=== PATIENT | male | born 1965 | race Caucasian/White ===

== ENCOUNTER 2019-08-07 08:04 | Emergency (ER) | payer OTHER, SELFPAY ==
--- NOTE | ~2019-08-07 | XR_ITS ---
EXAMINATION: XR finger 4th LT min 2V DATE: 08/07/2019 08:25 INDICATION: Left hand fourth digit injury. TECHNIQUE: 4 views of left hand fourth digit were obtained. COMPARISON: None. FINDINGS: There is a nondisplaced comminuted fracture of tuft of fourth distal phalanx. Joint spaces are normal in the fourth digit. IMPRESSION: 1. Nondisplaced comminuted fracture of tuft of fourth distal phalanx. Reviewed, dictated and finalized at location A.
[2019-08-07 08:12] VITALS: BP 133/57; PULSE 72; RESP 16; TEMP 37.2; O2SAT 100
--- NOTE | 2019-08-07 08:20 | ED.UPPEXIN ---
HPI - Extremity Injury (Upper) General Chief Complaint: Extremity Injury, Upper Stated Complaint: left ring finger injury Time Seen by Provider: 08/07/19 08:21 Source: patient Mode of arrival: ambulatory Limitations: clinical condition History of Present Illness HPI narrative: Wellington Lopez is a 54 yo male with no PMH who comes t express care with injury to L ring finger (compression) after dropping a battery on it las night Related Data Home Medications Medication Instructions Recorded Confirmed No Home Medications 08/07/19 08/07/19 Allergies Allergy/AdvReac Type Severity Reaction Status Date / Time No Known Allergies Allergy Verified 08/07/19 08:19 Review of Systems Review of Systems: Narrative: CONSTITUTIONAL: Denies fever, chills, sweats. EYES: Denies visual changes, redness, discharge. ENT: Denies rhinorrhea, congestion, sore throat, otalgia. CARDIOVASCULAR: Denies chest pain, palpitations, edema. RESPIRATORY: Denies dyspnea, wheezing, cough GASTROINTESTINAL: Denies abdominal pain, nausea, vomiting, diarrhea. GENITOURINARY: Denies dysuria, hematuria, abnormal discharge SKIN: Denies rash or itching. NEUROLOGIC: Denies numbness, or focal weakness. PSYCHIATRIC: Denies anxiety or depression. Left ring finger swelling and bruising PMFSH Family History Family History (Updated 08/07/19 @ 08:24 by Janet Agrawal CNP) Other No acute medical problems Social History Social History (Updated 08/07/19 @ 08:24 by Janet Agrawal CNP) Smoking status: Never smoker Alcohol intake: current Comments At time of signature, I agree with nursing past medical, surgical, social and family history. There is no relevant family history pertinent to the presenting complaint. Exam Narrative: Exam Narrative: GENERAL: This is a well-nourished, well-developed patient, in no distress. HEAD: normocephalic, atraumatic. EYES: Sclera clear/white. Vision is grossly intact. EARS: External ears normal, auditory canals clear and without drainage, TMs normal without perforation. Hearing grossly intact. NOSE: External nose normal without nasal discharge, nares without redness, no rhinorrhea. THROAT: Mucous membranes moist, posterior pharynx NECK: Neck supple, non-tender CARDIOVASCULAR: Regular rate and rhythm without murmurs, gallops, or rubs. RESPIRATORY: Clear to auscultation. Breath sounds equal bilaterally. No wheezes, rales, or rhonchi. GASTROINTESTINAL: Abdomen soft, non-tender, SKIN: warm, intact with no suspicious lesions or rash, good texture and turgor. NEURO: awake, alert, and oriented to person, place and time. There were no obvious focal neurologic abnormalities. Steady gait EXTREMITIES: Normal range of motion in L hand- good finger opposition; swelling along length of finger, with ecchymosis. Nail intact BACK: Nontender without deformity Course Course Emergency Course: Xray L hand - tuft fx , non displaced, distal ring finger Motrin for pain, finger guard, ice hand to decrease swelling Vital Signs Vital signs: Vital Signs Temperature 99 F 08/07/19 08:12 Pulse Rate 72 08/07/19 08:12 Respiratory Rate 16 08/07/19 08:12 Blood Pressure 133/57 L 08/07/19 08:12 Pulse Oximetry 100 08/07/19 08:12 Temperature 99 F 08/07/19 08:12 Pulse Rate 72 08/07/19 08:12 Respiratory Rate 16 08/07/19 08:12 Blood Pressure 133/57 L 08/07/19 08:12 Pulse Oximetry 100 08/07/19 08:12 MDM - Extremity Injury (Upper) Differential Diagnosis Differential diagnosis: Likely finger sprain, dislocation of finger, fracture of hand and other Discharge Plan Discharge Clinical Impression: Compression injury, Closed fracture of tuft of distal phalanx of finger Patient Disposition: Home, Self-Care Condition: Stable Instructions: R.I.C.E. Treatment (ED) Prescriptions: No Action No Home Medications RF: 0 Follow-up/Referrals: Joe Foreman MD [Physician] - (follow up for tuft f
== END 2019-08-07 09:00 | disposition home or self-care (01) ==
PROVIDERS: Emergency Provider Nurse Practitioner
DX: S62.665A Nondisplaced fracture of distal phalanx of left ring finger, initial encounter for closed fracture (principal); W23.1XXA Caught, crushed, jammed, or pinched between stationary objects, initial encounter
CPT/HCPCS: 29130; 73140; 99214; G0463

== ENCOUNTER 2019-09-03 08:21 | Emergency (ER) | payer OTHER, SELFPAY ==
[2019-09-03 08:28] VITALS: BP 132/94; PULSE 77; RESP 16; TEMP 37.1; O2SAT 98
--- NOTE | 2019-09-03 08:33 | ED.UPPEXIN ---
HPI - Extremity Injury (Upper) General Stated Complaint: right wrist injury Time Seen by Provider: 09/03/19 08:33 Source: patient and RN notes reviewed History of Present Illness HPI narrative: Patient is a 54-year-old male that presents the urgent care with complaints of right wrist pain, especially with flexion and financial services counselor. 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 Patient states that most recently he has not had any injury, fall, trauma to the wrist. However, patient has been fishing, working overtime as a auto mechanic supervisor, riding his motorcycle and lifting heavy objects. Patient states that that is normal activity for him. States that he noticed the pain when he was pulling his trash can and last night. Patient has not used anything [id number] for his pain. Patient reports a history of arthritis. No other acute complaints. No acute distress noted. Patient aware of the plan of care. Related Data Allergies Allergy/AdvReac Type Severity Reaction Status Date / Time No Known Allergies Allergy Verified 09/03/19 08:38 Review of Systems Review of Systems: Narrative: CONSTITUTIONAL: Denies fever, chills, or sweats. EYES: Denies visual changes, redness, or discharge. ENT: Denies rhinorrhea, congestion, sore throat, or otalgia. CARDIOVASCULAR: Denies chest pain, palpitations, or edema. RESPIRATORY: Denies cough or dyspnea. GASTROINTESTINAL: Denies abdominal pain, nausea, vomiting, or diarrhea. GENITOURINARY: Denies dysuria or hematuria. SKIN: Denies rash or itching. MUSCULOSKELETAL: Reports of right wrist pain NEUROLOGIC: Denies headache, numbness, or weakness. All other systems reviewed are negative, except as documented in HPI. PMFSH Social History Social History Smoking status: Never smoker Alcohol intake: current Comments At the time of my signature, I reviewed and agree with the nursing past medical, surgical, social, and family history. There is no relevant family history pertinent to the patient complaint. Exam Narrative: Exam Narrative: GENERAL: This is a well-nourished, well-developed patient, in no apparent distress. HEAD: normocephalic, atraumatic. EYES: PERRL. Sclera clear/white. Vision is grossly intact. EARS: External ears normal NOSE: External nose normal with no obvious nasal discharge, nares without redness, no rhinorrhea. THROAT: Mucous membranes moist NECK: Neck supple SKIN: warm, intact with no suspicious lesions or rash, good texture and turgor. NEURO: awake, alert, and oriented to person, place and time. There were no obvious focal neurologic abnormalities. EXTREMITIES: No obvious edema, ecchymosis, erythema, injury, dislocation, defect noted to the right wrist. Moderate tenderness to right wrist joint spaces, increased with range of motion specifically flexing and financial services counselor. Positive strong right radial pulse with capillary refill less than 2 seconds Course Vital Signs Vital signs: Vital Signs Temperature 98.7 F 09/03/19 08:28 Pulse Rate 77 09/03/19 08:28 Respiratory Rate 16 09/03/19 08:28 Blood Pressure 132/94 H 09/03/19 08:28 Pulse Oximetry 98 09/03/19 08:28 Temperature 98.7 F 09/03/19 08:28 Pulse Rate 77 09/03/19 08:28 Respiratory Rate 16 09/03/19 08:28 Blood Pressure 132/94 H 09/03/19 08:28 Pulse Oximetry 98 09/03/19 08:28 Reviewed?patient is informed that they may have pre-hypertension or hypertension based on a blood pressure reading in the department. I recommend the patient call the primary care provider listed on their discharge instructions or a physician of their choice this week to arrange follow-up for further evaluation of possible pre-hypertension or hypertension. MDM - Extremity Injury (Upper) MDM Narrative Medical decision making narrative: Spoke to the patient regarding arthritic pain. Patient is aware that his pain is likely related to arthritis. Advised the patient to
== END 2019-09-03 08:45 | disposition home or self-care (01) ==
PROVIDERS: Emergency Provider Nurse Practitioner Family
DX: M19.031 Primary osteoarthritis, right wrist (principal)
CPT/HCPCS: 99213; G0463

== ENCOUNTER 2019-11-07 12:35 | Emergency (ER) | payer OTHER, SELFPAY ==
[2019-11-07 12:40] VITALS: BP 116/65; PULSE 84; RESP 18; TEMP 37.6; O2SAT 98
--- NOTE | 2019-11-07 13:00 | ED.EAR ---
HPI - Ear Problem General Chief complaint: Ear Stated complaint: right ear pain/pressure/itching Time Seen by Provider: 11/07/19 13:01 Source: patient and RN notes reviewed Mode of arrival: ambulatory Limitations: no limitations History of Present Illness HPI Narrative: This is a 54 years old male presents to the office for an evaluation of intermittent ear itchiness for a few months. Symptom went away on its own and came back. For the last 2-day his ear has been more painful rather than itchy. He also reports stuffy nose at times, and occasional cough which he contributes to smoking. He smoked a pack a day. Denies sick contact. No treatment prior to arrival. Related Data Allergies Allergy/AdvReac Type Severity Reaction Status Date / Time No Known Allergies Allergy Verified 11/07/19 12:46 Review of Systems Review of Systems: Narrative: CONSTITUTIONAL: Denies fever, chills ENT: Denies sore throat. Reports bilateral ears itchy with right ear pain. CARDIOVASCULAR: Denies chest pain, palpitation RESPIRATORY: Denies dyspnea, wheezing, cough GASTROINTESTINAL: Denies abdominal pain, nausea, vomiting SKIN: Denies rash MUSCULOSKELETAL: Denies acute back pain NEUROLOGIC: Denies lightheaded All other systems reviewed are negative, except as documented in HPI. [facility] Family History Family History Other No acute medical problems Social History Social History (Updated 11/07/19 @ 13:25 by CHRISTINE Ashley) Smoking status: Current every day smoker Tobacco type: cigarettes Alcohol intake: current Comments At time of signature, I agree with nursing past medical, surgical, social and family history. There is no relevant family history pertinent to the presenting complaint. Exam Narrative: Exam Narrative: GENERAL: This is a well-nourished, well-developed patient, in no apparent distress. EARS: External ears normal, right canal appears erythema and edematous with tragal tenderness. Left auditory canal appears clear and without drainage, TMs normal without perforation; however there is fluid level. Hearing grossly intact. NOSE: External nose normal with no obvious nasal discharge, nares without redness, no rhinorrhea. THROAT: Mucous membranes moist, posterior pharynx normal with post nasal drainage. NECK: Neck supple, non-tender without lymphadenopathy, masses or thyromegaly. CARDIOVASCULAR: Regular rate and rhythm without murmurs, gallops, or rubs. RESPIRATORY: Clear to auscultation. Breath sounds equal bilaterally. No wheezes, rales, or rhonchi. GASTROINTESTINAL: Abdomen soft, non-tender, nondistended. Bowel sounds are active. No hepato-splenomegaly, or palpable masses. No guarding. SKIN: warm, intact with no suspicious lesions or rash, good texture and turgor. NEURO: awake, alert, and oriented to person, place and time. There were no obvious focal neurologic abnormalities. Steady gait Pompey Coma Scale Eye Opening: Spontaneous 4 Delmis Coma Scale Motor: Obeys Commands 6 Pompey Coma Scale Verbal: Oriented 5 Course Vital Signs Vital signs: Vital Signs Temperature 99.7 F H 11/07/19 12:40 Pulse Rate 84 11/07/19 12:40 Respiratory Rate 18 11/07/19 12:40 Blood Pressure 116/65 11/07/19 12:40 Pulse Oximetry 98 11/07/19 12:40 Temperature 99.7 F H 11/07/19 12:40 Pulse Rate 84 11/07/19 12:40 Respiratory Rate 18 11/07/19 12:40 Blood Pressure 116/65 11/07/19 12:40 Pulse Oximetry 98 11/07/19 12:40 Medical Decision Making MDM Narrative Medical decision making narrative: Discharge instructions reviewed with patient, as well as provided in writing per nursing staff. The instructions also include specific and strict return/GO TO THE ER as well as f/u information. All questions have been answered, and the patient deny any further questions with discharge and discharge plan. Differential Diagnosis Differential Diagnosis: Allergic
== END 2019-11-07 13:17 | disposition home or self-care (01) ==
PROVIDERS: Emergency Provider Nurse Practitioner
DX: J30.9 Allergic rhinitis, unspecified (principal); H60.501 Unspecified acute noninfective otitis externa, right ear; F17.200 Nicotine dependence, unspecified, uncomplicated
CPT/HCPCS: 99213; G0463